=== PATIENT | male | born 1950 | race Caucasian/White ===

== ENCOUNTER 2019-03-01 09:20 | Outpatient (CLI) | payer MEDICARE, OTHER ==
--- NOTE | 2019-03-01 13:16 | Ultrasound Report ---
Reason: PERSONAL HISTORY OF NICOTINE DEPENDENCE Procedure Date: 03/01/2019 Accession Number: [id number] / [id number] Procedure: US - Aorta Screening CPT Code: FULL RESULT: EXAM: AORTIC DOPPLER ULTRASOUND EXAM DATE: 03/01/2019 09:50 AM. CLINICAL HISTORY: Personal history of nicotine dependence. COMPARISON: None. TECHNIQUE: Real-time sonographic imaging of retroperitoneal vascular structures, including color-flow, Doppler flow and spectral analysis was performed by the editor greeting card. Multiple medical representative static images were saved for review. FINDINGS: Aorta: The abdominal aorta was adequately visualized. No evidence for abdominal aortic aneurysm. Aorta: Proxima: Sagittal AP 1.6 cm. Mid: Transverse 1.8 x 2.4 cm. Distal: Transverse 1.4 x 1.5 cm. Caliber: WNL: Yes. Plaque visualized: No. Iliac Vessels: The visualized proximal common iliac arteries are normal in caliber. Iliacs: Right Iliac: Transverse 0.7 x 0.9 cm. Left Iliac: Transverse 0.8 x 0.9 cm. Other: Study limited by bowel gas. IMPRESSION: No abdominal aortic aneurysm. RADIA
== END 2019-03-01 09:21 | disposition home or self-care (01) ==
LOC: DI 09:20
PROVIDERS: ATTEND Family Medicine
DX: Z13.6 Encounter for screening for cardiovascular disorders (principal); Z87.891 Personal history of nicotine dependence
CPT/HCPCS: 76706

== ENCOUNTER 2019-03-20 15:41 | Outpatient (CLI) | payer MEDICARE, OTHER ==
--- NOTE | 2019-03-20 16:34 | CONSULTATION NOTE ---
Information from patient questionnaire entered by Nupur Mary. I have reviewed and concur with the information entered by Nupur Mary. This document represents the service I personally performed and the decisions made by me, Mel Teresa MD, [facility]. - History of Present Illness Chief Complaint: Other (Obstructive sleep apnea) FILIPPO PACE was diagnosed to have mild, AHI 9.4, obstructive sleep apnea-hypopnea syndrome and presented today for consultation to continue CPAP therapy with [facility]. He gets his supplies from [employer]. The patient wears nasal pillows. He reports using the device nightly and all through the night. The compliance report shows usage in 157 nights out of the past 180 nights, averaging 6.6 hours a night. He complained of no particular problem with the device such as soreness on the face, dry nose, epistaxis, nasal congestion or headache. He thinks that the pressure of 5 cmH2O is comfortable. On the CPAP therapy he notices improvement in his sleep quality, and that he wakes up feeling fresher in the morning and more awake/alert during the day. His bed partner notices no snore at all. The average residual AHI is 2.0; and air leak, 0 L/min. The patient tells me that he normally goes to bed around 8:30-9:00 pm, and it takes him approximately 1-5 minutes to fall asleep. He can recall waking up on the average of 2-4 times during the night. Most of the time he wakes up because of using the bathroom, choking, snoring and gasping for air. There is not a lot of tossing and turning in his sleep. Generally there is no recollection of dreams. He usually wakes up at 5:00-6:00 am and does not feel refreshed. He usually does not have a morning headache. During the day he complains of feeling sleepy and fatigued. He has never fallen asleep while driving nor has any accident due to sleepiness. [place] Sleepiness Scale Score: 7 - Past Medical History Past Medical History: Other (enlarged prostate) - Allergies/Home Medications Allergies: NKDA Medications: doxazosin Allergies and home medications reviewed: Yes - Social History The patient's occupation is a [employer]. Patient is and lives in [place]. Smoked in the past 12 months: Yes Cigarettes per day (20/pack): 10 (to 20) Years of smokin Quit Date: mid 70's Smoking Pack Years: 6.5 Alcohol use: No Caffeine use: Yes Amount and frequency: 1 pot of coffee a day - Family History Family history of sleep disordered breathing: No - Review of Systems Cardiovascular: denies: high blood pressure, palpitations, chest pain, irregular heart rate or pulse, leg or foot swelling, have to sleep sitting up, other: Respiratory: denies: shortness of breath, wheeze, sputum production, chronic cough, other: Gastrointestinal: denies: heartburn, difficulty swallowing, nausea, vomitting, diarrhea, abdominal pain, other: Urinary: reports: frequency Neurological: denies: headaches, seizure, head trauma, disorientation, speech dysfunction, gait or balance problems, fainting or unconsciousness, other: Psychiatric: denies: Attention Deficit Hyperactivity, anxiety, depression, mood disorder, claustrophobia, other: Ear/Nose/Throat: reports: nasal congestion, sinus problems Endocrine: reports: sluggishness, increased urination Musculoskeletal: reports: joint pain (knees) - Physical Examination HEENT: No craniofacial malformation Nostrils: patent to airflow Turbinates: normal Septum: midline Mouth and throat: normal Soft palate: normal Hard palate: normal Uvula: normal Tongue: normal in size Tonsils: small Chin and jaw: normal size and position Neck: normal w/o lymphadenopathy or thyromegaly Heart: regular rate and rhythm Lungs: clear bilaterally Abdomen: soft, non-tender Extremities: no edema or clubbing Neurologic: intact, no focal deficits - Impression 1. Obstructive Sleep Apnea-Hypopnea Syndrome, mild, with the patient doing well on nasal CPAP therapy. He has excellent compliance and significant clinical improvement. The current pressure appears effective and comfortable. Overall, he is very satisfied with treatment and plans to continue with it long-term. Because the CPAP is now older than the useful life of 5 years, I will order the patient a new one and make it an autoCPAP set between 5 and 7 cmH2O. - Plan 1. Continue with CPAP set at 5 cmH2O. 2. Prescription made for a new autoCPAP, heated humidifier, and related supplies. 3. Try Respironics DreamWear nasal cushion mask and ResMed N30i mask. 4. Return for follow up after one month on the new machine. This visit is time-based and I spent 15 minutes with the patient and more than 50% of the time was spent counseling the patient.
== END 2019-03-20 15:42 | disposition home or self-care (01) ==
LOC: SC 15:41
PROVIDERS: ATTEND Internal Medicine Pulmonary Disease
DX: G47.33 Obstructive sleep apnea (adult) (pediatric) (principal)
CPT/HCPCS: 99203; G0463; 99212

== ENCOUNTER 2020-07-22 08:20 | Outpatient (CLI) | payer MEDICARE, OTHER ==
--- NOTE | 2020-07-22 09:13 | SLEEP CARE CONSULTATION ---
Information from patient questionnaire entered by Nupur Mary. I have reviewed and concur with the information entered by Nupur Mary. This document represents the service I personally performed and the decisions made by , Rocio Rudd ARNP. History of Present Illness Service Date and Time: 07/22/2020 0820 Previous diagnosis: Mild, Obstructive Sleep Apnea-Hypopnea Syndrome AHI: 9.4 (in 2012)(RDI-19.33 in 1997) Reason for follow up: annual (last seen 07/2019) Equipment type: CPAP Equipment obtained from: [employer] (getting supplies as needed; website difficult to use) Mask style: Nasal Backup mask available: Yes (old mask) Last cushion change: ++month Prior sleep studies: Yes Year and Where: [facility] - [facility], 1997 - [place] in [place], [place] Type of Sleep Study: Polysomnography HPI additional information: FILIPPO PACE was diagnosed to have mild, AHI 9.4 in 2012, obstructive sleep apnea- hypopnea syndrome and returned today for CPAP therapy annual follow-up. CPAP Compliance Data - Data Reviewed with Patient Average duration of nightly device use: 6 Compliance rate %: 84.4 (180 days) Current pressure setting (cmH2O): 5-7 Humidity settin Heated hose settin Average residual AHI: 2.5 Average large leak: 0 Subjective Missed days of use due to: reports: family emergency, travel Patient concerns: reports: nasal congestion. denies: aerophagia, mask discomfort, air blowing in eyes, mask leak noise, condensation in mask/hose, dry mouth, nose, throat, epistaxis, other Observed to snore while using device: No Current pressure setting perceived as: comfortable On therapy, patient: reports: sleeping better, awakening more refreshed, being more awake and alert during the day, more rested overall. denies: drowsiness while driving Initial [place] Sleepiness Scale score: 5 (in 2012) Current [place] Sleepiness Scale score: 6 Allergies and Home Medications Drug allergies reviewed: Yes (NKDA) Home medication list reviewed: Yes (no changes) Review of Systems Review of systems same as previous: Yes (no changes) Physical Exam Heart Rate: 60 O2 Saturation: 98 Height: 5 ft 5.8 in Weight: 165 lb Body Mass Index: 26.8 BMI Classification: Overweight Impression and Plan 1. Obstructive Sleep Apnea-Hypopnea Syndrome, mild, with good treatment complia nce and good apnea control. On CPAP therapy, the patient has better sleep quality and is more rested overall. He has had some nasal congestion. He states he gets up and tries to clear his nasal passages and walks around a little bit before laying back down with CPAP on to go to sleep. Nasal congestion can be reduced with increasing the CPAP humidity as shown on sample device. The heated hose can be adjusted higher if condensation with higher humidity setting. Saline nasal spray sample was also given to use prior to CPAP to clear nasal secretions and wash off any nasal allergens to facilitate nasal breathing. In addition, a steamy shower before bed will often assist nasal drainage. Patient's apnea severity and rationale for treatment to reduce apnea, improve sleep quality and reduce cardiovascular and cerebrovascular events was reviewed. * Continue auto CPAP pressure at 5-7 cmH2O * Notify me if snoring with mask or feeling that the pressure is too much or too little * Attempt to lose weight * Call this office if any problems using CPAP * Return for follow up in 1 year, or sooner if concerns arise Counseling Topics: Spare mask, Weight loss health impact Visit Type: In Office Time Spent with Patient (minutes): 20 Provider Statement: I spent 100% of the Face to Face Visit with the patient with greater than 50% spent counseling the patient and coordination of care.
== END 2020-07-22 08:21 | disposition home or self-care (01) ==
LOC: SC 08:20
PROVIDERS: ATTEND Nurse Practitioner Family
DX: G47.33 Obstructive sleep apnea (adult) (pediatric) (principal); E66.3 Overweight; Z68.26 Body mass index [BMI] 26.0-26.9, adult
CPT/HCPCS: 99213; G0463; 99212

== ENCOUNTER 2021-03-02 16:35 | Outpatient (CLI) | payer MEDICARE, OTHER | END 2021-03-02 16:36 | disposition home or self-care (01) | LOC: COV 16:35 | PROVIDERS: ATTEND Family Medicine | DX: R50.9 Fever, unspecified (principal); M79.10 Myalgia, unspecified site; R53.83 Other fatigue; R19.7 Diarrhea, unspecified; Z20.822 Contact with and (suspected) exposure to COVID-19 ==

== ENCOUNTER 2021-09-18 12:28 | Outpatient (CLI) | payer MEDICARE, OTHER ==
[2021-09-18 13:42] VITALS: BP 136/87
--- NOTE | 2021-09-18 13:42 | SLEEP CARE CONSULTATION ---
Information from patient questionnaire entered by Smitha Spencer MA. I have reviewed and concur with the information entered by Smitha Spencer MA. This document represents the service I personally performed and the decisions made by , Rocio Rudd ARNP. History of Present Illness Service Date and Time: 09/18/2021 1228 Previous diagnosis: Mild, Obstructive Sleep Apnea-Hypopnea Syndrome AHI: 9.4 (in 2012)(RDI-19.33 in 1997) Reason for follow up: annual (LAST SEEN 07/2020) Equipment type: CPAP Equipment obtained from: [employer] (getting supplies as needed) Mask style: Nasal Backup mask available: Yes (old mask) Prior sleep studies: Yes Year and Where: 2012 - [facility], 1997 - [place] in [place], [place] Type of Sleep Study: Polysomnography HPI additional information: FILIPPO PACE was diagnosed to have mild, AHI 9.4 (2012), RDI 19.33 1997, obstructive sleep apnea-hypopnea syndrome and returned today for CPAP therapy annual follow-up. Sleep Study - Results Type of Sleep Study: Polysomnography Prior sleep studies: Yes Year and Where: 2012 - [facility], 1997 - [place] in [place], [place] CPAP Compliance Data - Data Reviewed with Patient Average duration of nightly device use: 7 HOURS 4 MINUTES Compliance rate %: 72.8 Current pressure setting (cmH2O): 5-7 Humidity settin Heated hose settin Average residual AHI: 2.8 Average large leak: 0 Subjective Missed days of use due to: reports: travel, other (plugged up nose, recalled mac gen[employer]aro) Patient concerns: reports: nasal congestion. denies: aerophagia, mask discomfort, air blowing in eyes, mask leak noise, condensation in mask/hose, dry mouth, nose, throat, epistaxis, other Observed to snore while using device: No Current pressure setting perceived as: comfortable On therapy, patient: reports: sleeping better, awakening more refreshed, being more awake and alert during the day, more rested overall. denies: drowsiness while driving Initial [place] Sleepiness Scale score: 5 (in 2012) Current [place] Sleepiness Scale score: 7 (2021) Allergies and Home Medications Home medication list reviewed: Yes (no changes) Review of Systems Review of systems same as previous: Yes (no changes) Physical Exam Vital signs obtained and entered by: Leena SPENCER CMA AAIN Blood Pressure: 136/87 (right, pulse 57) Cuff size: regular Heart Rate: 67 O2 Saturation: 98 (withpaper mask) Height: 5 ft 5.8 in Weight: 165 lb (with clothes) Body Mass Index: 26.8 BMI Classification: Overweight Impression and Plan 1. Obstructive Sleep Apnea-Hypopnea Syndrome, mild, with good treatment compliance and good apnea control. On CPAP therapy, the patient has better sleep quality and is more rested overall. Patient has not been using his device since first september due to the recall and finding some black debris in his mask. Patient has already registered their device for the recall. Patient has been able to sleep without his CPAP but he does notice a difference. Patient has an older device that he will check to see if they are on the recall and he may switch to using that in the meantime until his device is replaced or repaired. I also advised him that he could purchase a portable APAP device on his own to use until his Dreamstation is replaced. This is not usually covered by insurance and he understood this. He requested a prescription for the portable CPAP and this was given to him at end of visit. Patient voiced understanding and agreement with plan. Patient's apnea severity and rationale for treatment to reduce apnea, improve sleep quality and reduce cardiovascular and cerebrovascular events was reviewed. Patient was advised to lose weight to improve his overall health and to reduce apneas. * Continue auto CPAP pressure at 5-7 cmH2O * Prescription for portable APAP device * Notify me if snoring with mask or feeling that the pressure is too much or too little * Attempt to lose weight * Call this office if any problems using CPAP * Return for follow up in 1 year, or sooner if concerns arise Counseling Topics: Spare mask, Weight loss health impact Visit Type: In Office Time Spent with Patient (minutes): 23 Provider Statement: I spent 100% of the Face to Face Visit with the patient with greater than 50% spent counseling the patient and coordination of care.
== END 2021-09-18 12:29 | disposition home or self-care (01) ==
LOC: SC 12:28
PROVIDERS: ATTEND Nurse Practitioner Family
DX: G47.33 Obstructive sleep apnea (adult) (pediatric) (principal)
CPT/HCPCS: 99213; G0463; 99212

== ENCOUNTER 2022-01-18 07:48 | Outpatient (CLI) | payer MEDICARE, OTHER ==
[2022-01-18 14:49] LABS: BASOPHILS % (AUTO) 0.4 %; EOSINOPHILS # (AUTO) 0.1 10^3/uL (0.0-0.7); EOSINOPHILS % (AUTO) 1.9 %; HCT - HEMATOCRIT 45.6 % (42.0-52.0); HGB - HEMOGLOBIN 14.9 g/dL (14.0-18.0); LYMPHOCYTES % (AUTO) 38.5 %; MEAN CORPUSCULAR HEMOGLOBIN 29.9 pg (27.0-31.0); MEAN CORPUSCULAR HGB CONC 32.7 g/dL (32.0-36.0); MEAN CORPUSCULAR VOLUME 91.6 fL (80.0-94.0); MEAN PLATELET VOLUME 11.1 fL (7.4-11.4); MONOCYTES # (AUTO) 0.6 10^3/uL (0.0-1.0); MONOCYTES % (AUTO) 12.2 %; NEUTROPHILS # (AUTO) 2.4 10^3/uL (1.5-6.6); NEUTROPHILS % (AUTO) 46.8 %; PLT - PLATELET COUNT 225 10^3/uL (130-450); RED BLOOD COUNT 4.98 10^6/uL (4.70-6.10); RED CELL DISTRIBUTION WIDTH 12.4 % (12.0-15.0); WHITE BLOOD COUNT 5.2 x10^3/uL (4.8-10.8)
[2022-01-18 15:40] LABS: ALBUMIN 3.9 g/dL (3.2-5.5); ALBUMIN/GLOBULIN RATIO 1.3 (1.0-2.2); ALKALINE PHOSPHATASE 93 IU/L (42-121); ALT ALANINE AMINOTRANSFERASE 21 IU/L (10-60); AST ASPARTATE AMINOTRANSFERASE 28 IU/L (10-42); BILIRUBIN,TOTAL 0.6 mg/dL (0.2-1.0); BUN - BLOOD UREA NITROGEN 15 mg/dL (6-20); CALCIUM 9.7 mg/dL (8.5-10.3); CARBON DIOXIDE - CO2 29 mmol/L (21-32); CHLORIDE 100 mmol/L (101-111); CHOL/HDL RATIO 4.3 (<5.0); CHOLESTEROL 258 mg/dL; CREATININE 0.8 mg/dL (0.6-1.2); GFR - MDRD 95 (>89); GLUCOSE 88 mg/dL (70-100); HDL CHOLESTEROL 60 mg/dL; LDL CHOLESTEROL,CALCULATED 179 mg/dL; POTASSIUM 5.1 mmol/L (3.5-5.0); SODIUM 136 mmol/L (135-145); TOTAL PROTEIN 6.8 g/dL (6.7-8.2); TRIGLYCERIDES 96 mg/dL; VLDL CHOLESTEROL 19 mg/dL
== END 2022-01-18 07:49 | disposition home or self-care (01) ==
LOC: LAB.S 07:48
PROVIDERS: ATTEND Naturopath
DX: N40.1 Benign prostatic hyperplasia with lower urinary tract symptoms (principal); M17.0 Bilateral primary osteoarthritis of knee; R53.83 Other fatigue; Z71.89 Other specified counseling
CPT/HCPCS: 36415; 80053; 80061; 83721; 84153; 84443; 85025

== ENCOUNTER 2022-09-15 15:08 | Outpatient (CLI) | payer MEDICARE, OTHER ==
[2022-09-15 15:54] VITALS: BP 112/70
--- NOTE | 2022-09-15 15:54 | SLEEP CARE CONSULTATION ---
Information from patient questionnaire entered by Delia Jansen. I have reviewed and concur with the information entered by Delia Jansen. This document represents the service I personally performed and the decisions made by me, Rocio Rudd ARNP. History of Present Illness Service Date and Time: 09/15/2022 1508 Previous diagnosis: Mild, Obstructive Sleep Apnea-Hypopnea Syndrome AHI: 9.4 (in 2012)(RDI-19.33 in 1997) Reason for follow up: annual (LAST SEEN 09/2021) Equipment type: CPAP (Dreamstation, refurbished/replacement) Equipment obtained from: [employer] (getting supplies as needed) Mask style: Nasal Backup mask available: Yes (old mask) Last cushion change: May 2022 Prior sleep studies: Yes Year and Where: 2012 - [facility], 1997 - [place] in [place], [place] Type of Sleep Study: Polysomnography HPI additional information: FILIPPO PACE was diagnosed to have mild, AHI 9.4, obstructive sleep apnea-hypopnea syndrome and returned today for CPAP therapy annual follow-up. Sleep Study - Results Type of Sleep Study: Polysomnography Prior sleep studies: Yes Year and Where: 2012 - [facility], 1997 - [place] in [place], [place] CPAP Compliance Data - Data Reviewed with Patient Average duration of nightly device use: 8 hours 17 minutes Compliance rate %: 96.7 (29/30 days used; 180 days at 57.8%, just got machine back) Average residual AHI: 2.3 Central apnea: 0.3 Obstructive apnea: 0.2 Average large leak: 0 Compliance data discussion: Patient received his replacement part for his DreamStation from [email or web address] in May. He resumed using his CPAP at that time. Subjective Missed days of use due to: reports: other (recall machine, got replacement in May 2022) Patient concerns: reports: nasal congestion, dry mouth, nose, throat. denies: aerophagia, mask discomfort, air blowing in eyes, mask leak noise, condensation in mask/hose, epistaxis Observed to snore while using device: No Current pressure setting perceived as: comfortable On therapy, patient: reports: sleeping better, awakening more refreshed, being more awake and alert during the day, more rested overall. denies: drowsiness while driving Initial [place] Sleepiness Scale score: 5 (in 2012) Current [place] Sleepiness Scale score: 7 (09/15/22) Allergies and Home Medications Drug allergies reviewed: Yes (NKDA) Home medication list reviewed: Yes (Pravastatin 80 mg) Review of Systems Review of systems same as previous: No (high cholesterol) Physical Exam Vital signs obtained and entered by: DELIA Ramirez MA Blood Pressure: 112/70 (LEFT ARM) Cuff size: regular Heart Rate: 57 O2 Saturation: 97 Height: 5 ft 5.8 in Weight: 172 lb 9.6 oz Body Mass Index: 28.0 BMI Classification: Overweight Impression and Plan 1. Obstructive Sleep Apnea-Hypopnea Syndrome, mild, with good treatment compliance and good apnea control. On CPAP therapy, the patient has better sleep quality and is more rested overall. Patient has significant improvement of their sleep apnea and are satisfied with current CPAP therapy. He does sometimes wake up feeling like his pressure is a little low. His average 90% pressure used is 6.9 cmH2O. After some discussion, I will adjust his pressure to 5-8 cmH2O for patient comfort. He will let me know if the pressure change in uncomfortable for further adjustment. Patient denies problems with oral dryness, nasal congestion, epistaxis, skin irritation or aerophagia. Patient's apnea severity and rationale for treatment to reduce apnea, improve sleep quality and reduce cardiovascular and cerebrovascular events was reviewed. 2. Overweight, unspecified. Currently patients BMI is 28.0. Obesity increases the risk of apnea, CPAP pressure requirements and overall health risks especially cardiovascular and diabetes. Thus patient is advised to lose weight. * Change auto CPAP pressure to 5-8 cmH2O * Update supplies * Notify me if snoring with mask or feeling that the pressure is too much or too little * Attempt to lose weight * Call this office if any problems using CPAP * Return for follow up in 1 year, or sooner if concerns arise Counseling Topics: Spare mask, Weight loss health impact Visit Type: In Office Time Spent with Patient (minutes): 21 Provider Statement: I spent 100% of the Face to Face Visit with the patient with greater than 50% spent counseling the patient and coordination of care.
== END 2022-09-15 15:09 | disposition home or self-care (01) ==
LOC: SC 15:08
PROVIDERS: ATTEND Nurse Practitioner Family
DX: G47.33 Obstructive sleep apnea (adult) (pediatric) (principal); E66.3 Overweight; Z68.28 Body mass index [BMI] 28.0-28.9, adult
CPT/HCPCS: 99213; G0463; 99212

== ENCOUNTER 2023-09-15 12:32 | Outpatient (CLI) | payer MEDICARE, OTHER ==
--- NOTE | 2023-09-15 13:11 | Sleep Patient Instructions ---
Sleep Center Visit Summary - Patient Visit Information Reason for Visit: Annual Visit - Patient Instructions Additional Instructions: You will continue with CPAP therapy with pressure changed to 6-10 cmH2O. We encourage you to continue to try to lose weight. Please follow up with the sleep care office in 1-2 months. - Clinic Information Contact: [facility] [address] [place] [address] [id number] [email or web address] T: [phone]
--- NOTE | 2023-09-15 13:18 | SLEEP CARE CONSULTATION ---
Information from patient questionnaire entered by Delia Jansen. I have reviewed and concur with the information entered by Delia Jansen. This document represents the service I personally performed and the decisions made by , Rocio Rudd ARNP. History of Present Illness Service Date and Time: 09/15/2023 1232 Previous diagnosis: Mild, Obstructive Sleep Apnea-Hypopnea Syndrome AHI: 9.4 (in 2012)(RDI-19.33 in 1997) Reason for follow up: annual (LAST SEEN 09/2022) Equipment type: CPAP (Dreamstation, refurbished/replacement NEED MACHINE) Equipment obtained from: [employer] (getting supplies as needed) Mask style: Nasal Backup mask available: No (don't know) Prior sleep studies: Yes Year and Where: 2012 - [facility], 1997 - [place] in [place], [place] Type of Sleep Study: Polysomnography HPI additional information: FILIPPO PACE was diagnosed to have mild, AHI 9.4, obstructive sleep apnea-hypopnea syndrome and returned today for CPAP therapy annual follow-up. Sleep Study - Results Type of Sleep Study: Polysomnography Prior sleep studies: Yes Year and Where: 2012 - [facility], 1997 - [place] in [place], [place] CPAP Compliance Data - Data Reviewed with Patient Average duration of nightly device use: 6 hours 33 minutes Compliance rate %: 58.9 (04/01/2022-03/31/2023 269/365 days used) Current pressure setting (cmH2O): 5-8 Average residual AHI: 2.8 Central apnea: 0.4 Obstructive apnea: 0.2 Average large leak: 23 secs Subjective Missed days of use due to: reports: other (can't breathe) Patient concerns: reports: other (can't get enough air). denies: aerophagia, mask discomfort, air blowing in eyes, mask leak noise, condensation in mask/hose, nasal congestion, dry mouth, nose, throat, epistaxis Observed to snore while using device: No Current pressure setting perceived as: too low On therapy, patient: reports: sleeping better, more rested overall. denies: drowsiness while driving Initial [place] Sleepiness Scale score: 5 (in 2012) Current [place] Sleepiness Scale score: 8 (09/15/23) Allergies and Home Medications Known drug allergies: No Drug allergies reviewed: Yes Home medication list reviewed: Yes (doxazosin; rosuvastatin) Allergy and home medication list: Allergies No Known Drug Allergies Allergy (Verified 09/13/23 08:45) Review of Systems Review of systems same as previous: Yes (NO CHANGE) Physical Exam Vital signs obtained and entered by: DELIA Ramirez MA Blood Pressure: 122/69 (LEFT ARM) Cuff size: regular Heart Rate: 68 O2 Saturation: 97 Height: 5 ft 5.8 in Weight: 169 lb 9.6 oz Body Mass Index: 27.5 BMI Classification: Overweight Impression and Plan 1. Obstructive Sleep Apnea-Hypopnea Syndrome, mild, with poor treatment compliance and good apnea control. On CPAP therapy, the patient has better sleep quality and is more rested overall. Patient states he got his replacement from [employer]. He says the pressure is too low when he has some air hunger when trying to use the CPAP. He just stopped using it because he could not get comfortable and after [place] [facility] [place], he comes back in for his annual visit for assistance. He states the air hunger was mostly initially, so I will increase his ramp starting pressure to 5 cm H2O. He also will feel a little short of air when waking up after being asleep. I will also adjust his pressure to 6-10 cm H2O to help reduce his air hunger when waking up during the night. I will have him follow-up in 1 to 2 months so we can recheck that the pressure is doing well and also recheck compliance so that we can renew his supply prescription. He voiced understanding and agreement with this plan of care. Patient's apnea severity and rationale for treatment to reduce apnea, improve sleep quality and reduce cardiovascular and cerebrovascular events was reviewed. 2. Overweight, unspecified. Currently patients BMI is 27.5. Obesity increases the risk of apnea, CPAP pressure requirements and overall health risks especially cardiovascular and diabetes. Thus patient is advised to lose weight. * Change auto CPAP pressure to 6-10 cmH2O * Update supply prescription * Notify me if snoring with mask or feeling that the pressure is too much or too little * Attempt to lose weight * Call this office if any problems using CPAP * Return for follow up in 1-2 months, or sooner if concerns arise Counseling Topics: Weight loss health impact Visit Type: In Office Time Spent with Patient (minutes): 26 Provider Statement: I spent 100% of the Face to Face Visit with the patient with greater than 50% spent counseling the patient and coordination of care.
[2023-09-15 13:27] VITALS: BP 122/69; O2SAT 97
== END 2023-09-15 12:33 | disposition home or self-care (01) ==
LOC: SC 12:32
PROVIDERS: ATTEND Nurse Practitioner Family
DX: G47.33 Obstructive sleep apnea (adult) (pediatric) (principal); E66.3 Overweight; Z68.27 Body mass index [BMI] 27.0-27.9, adult
CPT/HCPCS: 99213; G0463; 99212

== ENCOUNTER 2024-05-17 09:19 | Outpatient (CLI) | payer MEDICARE, OTHER ==
--- NOTE | 2024-05-17 09:54 | Sleep Patient Instructions ---
Sleep Center Visit Summary - Patient Visit Information Reason for Visit: 8-month follow-up - Patient Instructions Additional Instructions: You will continue with CPAP therapy with pressure set at 6-10 cmH2O. A supply prescription will be updated with your DME supplier. I have added an order to update your PAP machine. Please call the office to schedule a compliance follow up once you get your new device. Please follow up with the sleep care office one month after obtaining new device. - Clinic Information Contact: [facility] [address] [place] [address] [email or web address] T: [phone]
--- NOTE | 2024-05-17 10:02 | SLEEP CARE CONSULTATION ---
Information from patient questionnaire entered by Delia Jansen. I have reviewed and concur with the information entered by Delia Jansen. This document represents the service I personally performed and the decisions made by , Rocio Rudd ARNP. History of Present Illness Service Date and Time: 05/17/2024918 Previous diagnosis: Mild, Obstructive Sleep Apnea-Hypopnea Syndrome AHI: 9.4 (in 2012)(RDI-19.33 in 1997) Reason for follow up: other (8 MONTH F/U ) Equipment type: CPAP (Dreamstation, refurbished/replacement NEED MACHINE) Equipment obtained from: [employer] (getting supplies online) Mask style: Nasal Backup mask available: Yes Last cushion change: 2 months Prior sleep studies: Yes Year and Where: 2012 - [facility], 1997 - [employer] [place] in [place], [place] Type of Sleep Study: Polysomnography HPI additional information: FILIP[employer] PACE was diagnosed to have mild, AHI 9.4, obstructive sleep apnea-hypopnea syndrome and returned today for CPAP therapy eight month follow-up. Sleep Study - Results Type of Sleep Study: Polysomnography Prior sleep studies: Yes Year and Where: 2012 - [facility], 1997 - [employer] in [place], [place] CPAP Compliance Data - Data Reviewed with Patient Average duration of nightly device use: 8 HRS 8 MINS 45 SECS Compliance rate %: 98.3 (11/13/23-05/10/24) Current pressure setting (cmH2O): 6-10 Average residual AHI: 2.0 Central apnea: 0.3 Obstructive apnea: 0.2 Hypopnea: 1.5 Average large leak: 2 mins 22 secs Subjective Missed days of use due to: reports: travel Patient concerns: reports: dry mouth, nose, throat (humidifier not working). d enies: aerophagia, mask discomfort, air blowing in eyes, mask leak noise, condensation in mask/hose, nasal congestion, epistaxis Observed to snore while using device: No Current pressure setting perceived as: comfortable On therapy, patient: reports: sleeping better, awakening more refreshed, being more awake and alert during the day, more rested overall. denies: drowsiness while driving Initial Stratford Sleepiness Scale score: 5 (in 2012) Current Stratford Sleepiness Scale score: 4 (05/17/24) Allergies and Home Medications Known drug allergies: No Drug allergies reviewed: Yes Home medication list reviewed: Yes (rosuvastatin) Allergy and home medication list: Allergies No Known Drug Allergies Allergy (Verified 05/17/24 09:20) Home Medications Medication Instructions Recorded Confirmed Last Taken Type Acetaminophen [Tylenol] See Rx Instructions .ROUTE .COMPLEX 09/15/23 05/17/24 Unknown History Aspirin [Aspirin EC] See Rx Instructions .ROUTE .COMPLEX 09/15/23 05/17/24 Unknown History Doxepin [SINEquan] See Rx Instructions .ROUTE .COMPLEX 09/15/23 05/17/24 Unknown History Rosuvastatin Calcium See Rx Instructions .ROUTE .COMPLEX 09/15/23 05/17/24 Unknown History Review of Systems Review of systems same as previous: Yes (no changes) Physical Exam Vital signs obtained and entered by: Delia Ramirez MA Blood Pressure: 140/75 (LEFT ARM) Cuff size: regular Heart Rate: 62 O2 Saturation: 99 Height: 5 ft 5.8 in Weight: 173 lb 3.2 oz Weight change since last visit: 4 lb loss Body Mass Index: 28.1 BMI Classification: Overweight Impression and Plan 1. Obstructive Sleep Apnea-Hypopnea Syndrome, mild, with good treatment compliance and good apnea control. On CPAP therapy, the patient has better sleep quality and is more rested overall. His recertified [employer]'s humidifier has quit working. He says he last received a new CPAP in 05/2019. He is eligible for a new CPAP. The patients CPAP is over 5 years old and of reasonable use. In addition, the humidifier is not working, a sign of malfunction. Thus, the CPAP will be updated. The new CPAPs also have a better humidity system which could assist control of patients dryness symptoms. A DWO prescription will be made. Compliance guidelines for new device and follow up discussed. Patient's apnea severity and rationale for treatment to reduce apnea, improve sleep quality and reduce cardiovascular and cerebrovascular events was reviewed. 2. Overweight, unspecified. Currently patients BMI is 28.1. He has lost weight. Obesity increases the risk of apnea, CPAP pressure requirements and overall health risks especially cardiovascular and diabetes. Thus patient is advised to continue to try to lose weight. * Continue auto CPAP pressure at 6-10 cmH2O * Update machine and supplies * Notify me if snoring with mask or feeling that the pressure is too much or too little * Continue to try to lose weight * Call this office if any problems using CPAP * Return for follow up in one month after obtaining new CPAP, or sooner if concerns arise Counseling Topics: Spare mask, Weight loss health impact Prescriptions: Auto CPAP, Device supplies Follow up with Sleep Care in: other (compliance follow up) Visit Type: In Office Time Spent with Patient (minutes): 23 Provider Statement: I spent 100% of the Face to Face Visit with the patient with greater than 50% spent counseling the patient and coordination of care.
[2024-05-17 10:10] VITALS: BP 140/75; O2SAT 99
== END 2024-05-17 09:20 | disposition home or self-care (01) ==
LOC: SC 09:19
PROVIDERS: ATTEND Nurse Practitioner Family
DX: G47.33 Obstructive sleep apnea (adult) (pediatric) (principal); E66.3 Overweight; Z68.28 Body mass index [BMI] 28.0-28.9, adult
CPT/HCPCS: 99213; G0463; 99212